=== PATIENT | female | born 1960 | race Caucasian/White ===

== ENCOUNTER → 2017-02-15 | Day surgery (SDC) | payer BC ==
[~2017-02-15] VITALS: Ht 170.2 cm; Wt 81.0 kg
[~2017-02-15] MED LIST: VENLAFAXINE HCL75 M2 PO
== END | disposition disaster alternative care site (69) ==
LOC: GPOC 02-09 15:00 → GEND 06:52 → GPOC 15:00
PROC: 0DBL8ZZ Excision of Transverse Colon, Via Natural or Artificial Opening Endoscopic (ICD-10-PCS; principal; 2017-02-15)
DX: Z12.11 Encounter for screening for malignant neoplasm of colon (principal); D12.3 Benign neoplasm of transverse colon; K57.30 Diverticulosis of large intestine without perforation or abscess without bleeding; Z86.010 Personal history of colon polyps
CPT/HCPCS: J7030

== ENCOUNTER → 2017-03-19 | Outpatient (CLI) | payer BC | END | disposition disaster alternative care site (69) | LOC: GBCOE 13:09 | DX: R92.2 Inconclusive mammogram (principal); N60.12 Diffuse cystic mastopathy of left breast; N63 Unspecified lump in breast | CPT/HCPCS: G0206; G0279 ==